=== PATIENT | male | born 1940 | race Caucasian/White ===

== ENCOUNTER 2018-05-30 23:19 | Emergency (ER) | payer MEDICARE ==
[2018-05-30] MEDS ORDERED: EPINEPHrine 1MG/10ML SYRINGE 1.5IN ONE (23:20)
[2018-05-30] MEDS ORDERED: SODIUM BICARBONATE 8.4% INJ 50 ML SYRINGE ONE (23:20)
[2018-05-31] MEDS ORDERED: EPINEPHrine 1MG/10ML SYRINGE 1.5IN IV STA ×2 (00:21)
[2018-05-31] MEDS ORDERED: SODIUM BICARBONATE 8.4% INJ 50 ML SYRINGE IV STA (00:21)
== END 2018-05-31 02:46 | disposition expired ==
LOC: M ED 23:19
DX: I46.9 Cardiac arrest, cause unspecified (principal)